=== PATIENT | female | born 2000 | race Two or more races ===

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

== ENCOUNTER 2022-11-27 22:05 | Emergency (ER) | payer OTHER ==
[~2022-11-27] VITALS: Ht 162.6 cm; Wt 77.1 kg
[~2022-11-27 22:05] MED LIST: PEPCID40 MG PO; ZOFRAN4 MG PO
[2022-11-28] MEDS ORDERED: LEVSIN/SL0.125 MG SL (07:30)
[2022-11-28] MEDS ORDERED: FAMOTIDINE40 MG PO (07:30)
[2022-11-28] MEDS ORDERED: ONDANSETRON ODT4 MG PO ×2 (07:30→07:31)
== END 2022-11-28 07:39 | disposition home or self-care (01) ==
LOC: ER 22:05 → EMR PED 22:08 → ER 11-28 07:39
DX: K52.89 Other specified noninfective gastroenteritis and colitis (principal); E86.0 Dehydration; I10 Essential (primary) hypertension; E11.9 Type 2 diabetes mellitus without complications